=== PATIENT | male | born 1960 | race Caucasian/White ===

== ENCOUNTER 2016-12-17 14:31 | Emergency (ER) | payer OTHER ==
[~2016-12-17] VITALS: Ht 185.4 cm; Wt 81.6 kg
--- NOTE | 2016-12-17 15:55 | NUR ---
at bedside assessing patient.
[2016-12-17] MEDS ORDERED: TDAP DIPH,PERTUSS,TET VAC/PF 0.5 ML DISP.SYRIN IM ONE ×2 (16:15→16:37)
[2016-12-17] MEDS ORDERED: CLINDAMYCIN PHOSPHATE IV 600 MG in IV DEXTROSE 5% 100 ML IV ONE (16:15)
[2016-12-17] MEDS ORDERED: DEXAMETHASONE SOD PHOSPHATE 4 MG INJ IV ONE (16:15)
[2016-12-17] MEDS ORDERED: IV NORMAL SALINE 1000 ML BAG IV ONE (16:15)
[2016-12-17 16:37] LABS: BASOPHILS % (AUTO) 0.6 % (0.0-2.0); EOSINOPHILS # (AUTO) 0.2 K/uL (0.0-0.7); EOSINOPHILS % (AUTO) 2.5 % (0.0-7.0); HEMOGLOBIN 14.9 g/dL (14.0-18.0); LYMPHOCYTES # (AUTO) 1.4 K/uL (0.8-4.8); LYMPHOCYTES % (AUTO) 22.9 % (20.5-51.5); MEAN CORPUSCULAR HEMOGLOBIN 33.2 uug (27.0-31.0); MEAN CORPUSCULAR HGB CONC 34 g/dL (32.0-37.0); MEAN CORPUSCULAR VOLUME 97.7 fL (82.0-92.0); MONOCYTES # (AUTO) 0.4 K/uL (0.1-1.30); MONOCYTES % (AUTO) 5.8 % (0.0-11.0); NEUTROPHILS # (AUTO) 4.1 K/uL (1.8-8.9); NEUTROPHILS % (AUTO) 68.2 % (38.5-71.5); PLATELET COUNT (AUTO) 182 K/uL (150-450); RED CELL DISTRIBUTION WIDTH 12.2 % (11.5-14.5); WHITE BLOOD COUNT (AUTO) 6.1 K/uL (4.0-11.2)
[2016-12-17 16:43] LABS: CALCIUM 9.5 mg/dL (8.5-10.1); CREATININE 0.9 mg/dL (0.6-1.3); POTASSIUM 4.1 mmol/L (3.5-5.1)
[2016-12-17] MEDS ORDERED: DEXAMETHASONE SOD PHOSPHATE 4 MG INJ ONE (16:44)
[2016-12-17 16:49] LABS: ALBUMIN 4.7 g/dL (3.4-5.0); BILIRUBIN,DIRECT 0.1 mg/dL (0.0-0.2); BILIRUBIN,TOTAL 0.6 mg/dL (0.2-1.0); TOTAL PROTEIN, SERUM 8.2 g/dL (6.4-8.2)
[2016-12-17 16:51] LABS: TROPONIN I < 0.017 ng/mL (0.00-0.056)
[2016-12-17 16:57] LABS: LACTIC ACID 1.9 mmol/L (0.4-2.0)
== END 2016-12-17 18:30 | disposition home or self-care (01) ==
LOC: ER 14:31
DX: L30.8 Other specified dermatitis (principal); B95.8 Unspecified staphylococcus as the cause of diseases classified elsewhere
CPT/HCPCS: 36415; 70030-TC; 83605; 85025; 85730; 87040; 90715; A4663; J1100; J3490; J7030; J7040; J7060

== ENCOUNTER 2017-01-12 18:46 | Emergency (ER) | payer MEDICAID, OTHER ==
[~2017-01-12] VITALS: Ht 185.4 cm; Wt 81.6 kg
[2017-01-13] MEDS: CLINDAMYCIN HCL 150 MG CAPSULE PO ONE (01:03)
--- NOTE | 2017-01-13 01:09 | NUR ---
Patient discharged to home in stable conditon. Written and verbal after care instructions given. Patient verbalizes understanding of instructions.
[2017-01-13] MEDS ORDERED: CLINDAMYCIN HCL 300 MG CAPSULE ONE (01:12)
== END 2017-01-13 01:19 | disposition home or self-care (01) ==
LOC: ER 18:47
DX: L30.9 Dermatitis, unspecified (principal); B95.8 Unspecified staphylococcus as the cause of diseases classified elsewhere
CPT/HCPCS: A4663

== ENCOUNTER 2017-02-02 10:52 | Emergency (ER) | payer MEDICAID ==
[~2017-02-02] VITALS: Ht 185.4 cm; Wt 81.6 kg
--- NOTE | 2017-02-02 11:13 | NUR ---
DR MENA AT THE BEDSIDE FOR EVAL AND EXAM.
[2017-02-02 11:21] VITALS: BP 147/98
--- NOTE | 2017-02-02 11:21 | NUR ---
Patient discharged to home in stable conditon. Written and verbal after care instructions given. Patient verbalizes understanding of instructions.
== END 2017-02-02 11:23 | disposition home or self-care (01) ==
LOC: ER 10:52
DX: L03.115 Cellulitis of right lower limb (principal)
CPT/HCPCS: A4663

== ENCOUNTER 2017-02-05 15:23 | Emergency (ER) | payer MEDICAID ==
[~2017-02-05] VITALS: Ht 180.3 cm; Wt 81.6 kg
--- NOTE | 2017-02-05 15:45 | NUR ---
WOUND CULTURE COLLECTED AND SENT TO LAB.
[2017-02-05] MEDS: CLINDAMYCIN HCL 150 MG CAPSULE PO ONE (15:47)
[2017-02-05 15:50] VITALS: BP 148/92
--- NOTE | 2017-02-05 15:51 | NUR ---
Patient discharged to home in stable conditon. Written and verbal after care instructions given. Patient verbalizes understanding of instructions.
[2017-02-05] MEDS ORDERED: CLINDAMYCIN HCL 300 MG CAPSULE ONE (15:55)
[2017-02-08] MEDS ORDERED: CLIN300C11 PO (08:59)
[2017-02-09] MEDS ORDERED: CEPH-570 PO (09:43)
== END 2017-02-05 15:51 | disposition home or self-care (01) ==
LOC: ER 15:23
DX: L03.115 Cellulitis of right lower limb (principal)
CPT/HCPCS: 87070; A4663

== ENCOUNTER 2017-02-07 17:01 | Emergency (ER) | payer MEDICAID ==
[~2017-02-07] VITALS: Ht 185.4 cm; Wt 81.6 kg
[2017-02-07] MEDS ORDERED: VANCOMYCIN IV 1,000 MG in IV DEXTROSE 5% 250 ML IV ONE (17:15)
[2017-02-07] MEDS ORDERED: VANCOMYCIN 1000 MG VIAL ONE (17:29)
--- NOTE | 2017-02-07 18:02 | NUR ---
Patient is resting comfortably in bed while watching bedside TV, for discharge after the IV Vancomycin is finished.
--- NOTE | 2017-02-07 20:18 | NUR ---
IV removed. Catheter intact and site benign. Pressure and 4x4 gauze applied to site. No bleeding noted.
[2017-02-07 20:30] VITALS: BP 140/85
--- NOTE | 2017-02-07 20:30 | NUR ---
Patient discharged to home in stable conditon with taking patient home. Written and verbal after care instructions given. Patient verbalizes understanding of instructions. walked out of er with steady gait
[2017-02-08] MEDS ORDERED: CLIN300C97 PO (08:59)
[2017-02-09] MEDS ORDERED: CEPH-570 PO (09:43)
== END 2017-02-07 20:31 | disposition home or self-care (01) ==
LOC: ER 17:01
DX: L03.116 Cellulitis of left lower limb (principal); L03.115 Cellulitis of right lower limb
CPT/HCPCS: 96365; 96366; 99285; A4663; J3370; J7060

== ENCOUNTER 2017-02-08 08:45 | Emergency (ER) | payer MEDICAID ==
[~2017-02-08] VITALS: Ht 185.4 cm; Wt 81.6 kg
[2017-02-08] MEDS ORDERED: CLIN300C97 PO (08:59)
[2017-02-08] MEDS ORDERED: VANCOMYCIN IV 200 ML ONE (09:13)
[2017-02-08] MEDS ORDERED: VANCOMYCIN IV 1,000 MG in IV DEXTROSE 5% 250 ML IV ONE (09:15)
--- NOTE | 2017-02-08 11:06 | NUR ---
Patient discharged to home in stable conditon. Written and verbal after care instructions given. Patient verbalizes understanding of instructions.pt walks in steady gait accompanied by . pt deneis any complain. pt tolerated the vanco well. will come back in 12 hours per md green instructions
[2017-02-08 11:08] VITALS: BP 132/89
[2017-02-09] MEDS ORDERED: CEPH-570 PO (09:43)
== END 2017-02-08 11:08 | disposition home or self-care (01) ==
LOC: ER 08:45
DX: L03.116 Cellulitis of left lower limb (principal); L03.115 Cellulitis of right lower limb
CPT/HCPCS: 96365; 96366; 99285; A4663; J3370

== ENCOUNTER 2017-02-08 21:24 | Inpatient (IN) | payer MEDICAID ==
[~2017-02-08] VITALS: Ht 185.4 cm; Wt 83.5 kg
[~2017-02-08 21:24] MED LIST: CLINDAMYCIN HC300 MG PO
--- NOTE | 2017-02-08 21:49 | NUR ---
Dr Song contacted for MD to MD call. call back pending.
--- NOTE | 2017-02-08 21:55 | NUR ---
SARABJIT speaking with Dr. Song.
--- NOTE | 2017-02-08 22:42 | NUR ---
Pt. admitted to Med Surg , under care of Dr. Song. Dx: Cellulitis. Belongs List completed
--- NOTE | 2017-02-08 22:50 | NUR ---
nsg: pt received fr er, a/o x4, with dx of BLE cellulitis. right knee, left lower leg, posterior right knee, posterior left knee all reddened. hl on right antecubital patent. cont to monitor.
--- NOTE | 2017-02-08 22:55 | NUR ---
REPORT RECEIVED FROM ELIZA IN ER. PT DIAGNOSED WITH BILATERAL CELLULITES OF THE LOWER EXTREMITY. TRANSFERRED VIA [facility]. A/OX4. NO S/S OF ACUTE DISTRESS. V/S STABLE. PT HAS NO COMPLAINTS OF PAIN AT THIS TIME.
[2017-02-08 23:01] VITALS: BP 146/81; TEMP 98.8
[2017-02-08] MEDS ORDERED: ZOLPIDEM 5 MG TABLET PO PRN (23:45)
[2017-02-08] MEDS ORDERED: ONDANSETRON 4 MG/2 ML VIAL IV PRN (23:45)
[2017-02-08] MEDS ORDERED: LEVOFLOXACIN 500 MG/D5W 500 MG in PREMIXED 1 EACH IV SCH (23:45)
[2017-02-08] MEDS ORDERED: HYDROMORPHONE 1 MG/1 ML DISP.SYRIN IV PRN (23:45)
[2017-02-08] MEDS ORDERED: ACETAMINOPHEN 325 MG TABLET PO PRN (23:45)
[2017-02-09] MEDS ORDERED: LEVOFLOXACIN 500 MG/D5W 100 ML ONE (00:12)
[2017-02-09] MEDS: HYDROCODONE/APAP 5-325MG TABLET PO PRN ×2 (00:26→09:58)
[2017-02-09] MEDS ORDERED: HYDROCODONE/APAP 5-325MG TABLET ONE (00:36)
[2017-02-09 04:25] VITALS: BP 123/81; TEMP 98.2
[2017-02-09] MEDS: VANCOMYCIN IV 1,250 MG in IV DEXTROSE 5% 500 ML IV SCH ×2 (08:00→09:57)
[2017-02-09] MEDS ORDERED: KEFLEX500 MG PO (09:43)
[2017-02-09] MEDS ORDERED: CEPHALEXIN MONOHYDRATE 500 MG CAPSULE PO SCH (09:45)
[2017-02-09 11:23] VITALS: BP 108/71; TEMP 98.4
[2017-02-09] MEDS ORDERED: LEVOFLOXACIN 500 MG/D5W 500 MG in PREMIXED 1 EACH IV SCH (21:00)
== END 2017-02-09 14:10 | disposition home or self-care (01) | DRG 383 ==
LOC: ER 21:27 → MED 22:30
PROVIDERS: ADMIT Internal Medicine; ATTEND Internal Medicine
DX: L03.115 Cellulitis of right lower limb (principal); L30.9 Dermatitis, unspecified; L03.116 Cellulitis of left lower limb; Z86.14 Personal history of Methicillin resistant Staphylococcus aureus infection